=== PATIENT | male | born 1965 | race Caucasian/White ===

== ENCOUNTER 2016-05-27 06:40 | Day surgery (SDC) | payer BC ==
[~2016-05-27] VITALS: Ht 205.7 cm; Wt 131.5 kg
[~2016-05-27 06:40] MED LIST: ASPI81 PO; TAB-TAB PO
[2016-05-27] MEDS ORDERED: SODIUM BICARBONATE 100 MEQ in D5W 1000 ML IV SCH ×2 (07:45→08:30)
[2016-05-27 08:18] VITALS: BP 126/83; PULSE 60; RESP 18; TEMP 98.3; O2SAT 99
[2016-05-27 08:29] LABS: AUTOMATED NEUTROPHIL # 3.9 TH/MM3 (1.8-7.7); BASOPHIL % 0.4 % (0.0-2.0); EOSINOPHIL # 0.2 TH/MM3 (0-0.4); EOSINOPHIL % 2.8 % (0.0-4.0); HEMATOCRIT 38.1 % (39.0-51.0); HEMO FLAGS DIFF FINAL; LYMPH % 29.8 % (9.0-44.0); MEAN CELL VOLUME 85.7 FL (80.0-100.0); MEAN CORPUSCULAR HEMOGLOBIN 28.8 PG (27.0-34.0); MEAN CORPUSCULAR HGB CONC 33.6 % (32.0-36.0); MONO % 8.5 % (0.0-8.0); NEUT % 58.5 % (16.0-70.0); PLATELET COUNT 222 TH/MM3 (150-450); RED BLOOD COUNT 4.45 MIL/MM3 (4.50-5.90); RED CELL DISTRIBUTION WIDTH 13.4 % (11.6-17.2); WHITE BLOOD COUNT 6.7 TH/MM3 (4.0-11.0)
[2016-05-27] MEDS ORDERED: SODIUM BICARBONATE 8.4% INJ 50 ML ONE (08:44)
[2016-05-27] MEDS ORDERED: LIDOCAINE HCL 1% PF 30 ML VIAL ONE ×2 (08:44→09:11)
[2016-05-27] MEDS ORDERED: MIDAZOLAM HCL 2 MG/2 ML VIAL ONE ×3 (08:45→09:29)
[2016-05-27 08:49] LABS: BICARBONATE 29.7 MEQ/L (21.0-32.0); POTASSIUM 4.4 MEQ/L (3.5-5.1); PROTHROMBIN TIME - PATIENT 10.7 SEC (9.8-11.6)
[2016-05-27] MEDS ORDERED: LIDOCAINE 1%/EPINEPHrine 1:100,000 SOLN 20 ML VIAL ONE (08:57)
[2016-05-27] MEDS ORDERED: SODIUM CHLOR 0.9% 250 ML IV PRN (10:30)
[2016-05-27] MEDS ORDERED: ATROPINE SULFATE 1 MG/ML VIAL IV PUSH PRN (10:30)
[2016-05-27] MEDS ORDERED: ENALAPRILAT 1.25 MG/ML VIAL IV PRN (10:30)
[2016-05-27] MEDS ORDERED: cloNIDine HCL 0.1 MG TAB PO PRN (10:30)
[2016-05-27] MEDS ORDERED: LORazepam 2 MG/ML VIAL IVP PRN (10:30)
[2016-05-27] MEDS ORDERED: LABETALOL HCL 100 MG/20 ML VIAL IVP PRN (10:30)
[2016-05-27] MEDS ORDERED: METOCLOPRAMIDE HCL 10 MG/2 ML VIAL IVS PRN (10:30)
[2016-05-27] MEDS ORDERED: POTASSIUM CHLORIDE 20 MEQ CONTROLLED RELEASE TAB PO PRN (10:30)
[2016-05-27] MEDS ORDERED: ONDANSETRON HCL 4 MG/2 ML VIAL IV PRN (10:30)
[2016-05-27] MEDS ORDERED: HOLD GLUCOPHAGE, GLUCOPHAGE XR, AND AVANDAMET XX PRN (10:30)
[2016-05-27] MEDS ORDERED: SODIUM NITROPRUSSIDE 50 MG/250 ML D5W IV SCH ×2 (10:30)
[2016-05-27] MEDS ORDERED: LIDOCAINE HCL 1% 50 ML VIAL INFIL PRN (10:30)
--- NOTE | 2016-05-27 10:36 | PD.VS.PN ---
Pre-operative Note Pre-operative diagnosis: symptomatic varicose veins. Planned procedure: left GSV ablation Labs: Laboratory Tests Test 05/27/16 07:55 White Blood Count 6.7 Red Blood Count 4.45 Hemoglobin 12.8 Hematocrit 38.1 Mean Corpuscular Volume 85.7 Mean Corpuscular Hemoglobin 28.8 Mean Corpuscular Hemoglobin 33.6 Concent Red Cell Distribution Width 13.4 Platelet Count 222 Mean Platelet Volume 8.7 Neutrophils (%) (Auto) 58.5 Lymphocytes (%) (Auto) 29.8 Monocytes (%) (Auto) 8.5 Eosinophils (%) (Auto) 2.8 Basophils (%) (Auto) 0.4 Neutrophils # (Auto) 3.9 Lymphocytes # (Auto) 2.0 Monocytes # (Auto) 0.6 Eosinophils # (Auto) 0.2 Basophils # (Auto) 0.0 CBC Comment DIFF FINAL Differential Comment Prothrombin Time 10.7 Prothromb Time International 1.0 Ratio Sodium Level 142 Potassium Level 4.4 Chloride Level 108 Carbon Dioxide Level 29.7 Anion Gap 4 Blood Urea Nitrogen 18 Creatinine 1.03 Estimat Glomerular Filtration 77 Rate Random Glucose 92 Calcium Level 8.5 Operative site marked: Yes Consent: Informed consent has been obtained from Wojciech Ivy. I have explained the procedure in detail and discussed the risks, benefits, and potential complications. All questions have been answered. Jacobo Jay DO May 27, 2016 10:25
[2016-05-28] MEDS ORDERED: ASPIRIN EC 81 MG TABEC PO SCH (09:00)
--- NOTE | 2016-05-28 12:02 | MP ---
cc: JACOBO DE GUZMAN ATTENDING PHYSICIAN Dr. Jacobo De Guzman DATE OF OPERATION 05/27/2016 PREOPERATIVE DIAGNOSIS Symptomatic varicose veins, venous insufficiency left lower extremity. POSTOPERATIVE DIAGNOSIS Symptomatic varicose veins, venous insufficiency left lower extremity. PROCEDURES Left greater saphenous vein ablation. SURGEON DO Pierre. PROCEDURE The patient's left leg was prepped and draped in sterile fashion after being under moderate sedation. Preoperatively I had marked the left greater saphenous vein from the groin to around the level of the knee and below the level of the knee the vein was small and too tortuous for any type of ablation. I injected 1% lidocaine with epinephrine and before getting access under ultrasound of the left greater saphenous vein at the level of the knee. I placed an 18-gauge needle and exchanged over braided wire for a 7-Icelandic sheath and then advanced my [employer] radiofrequency ablation catheter under ultrasound through the saphenofemoral junction through my sheath in the left groin. I then used tumescent anesthesia in order to, under ultrasound guidance, to inject a bull's-eye pattern along the length of the greater saphenous vein from the knee up to the about 2 cm from the saphenofemoral junction. Before doing this, I made sure that my catheter was pulled back about 2.5 cm from the saphenofemoral junction. Once I felt like we had appropriately tumescence, I then performed an ablation along the length of the saphenous vein from approximately 2.5 cm back to the knee. Afterwards ultrasound showed that the vein was thrombosed and it was about 2.2 cm from the saphenofemoral junction to where the thrombosed vein segment was to the level of the knee. After I removed my sheath and catheter, I wrapped the leg from the ankle to the groin with three Fortunato bandages and I used 4x4s from the knee to the thigh. The patient tolerated the procedure well and was taken to the PACU at the end of the case. Jacobo De Guzman DO RM/SSB /10:29 AM /11:54 AM
== END 2016-05-27 11:46 | disposition home or self-care (01) ==
LOC: HDOC 06:40 → HDIC 06:41 → HDOC 11:46
PROVIDERS: ATTEND Surgery
DX: I83.892 Varicose veins of left lower extremity with other complications (principal); I87.2 Venous insufficiency (chronic) (peripheral)
CPT/HCPCS: 36475; 80048; 85025; 85610; C1769; J2250; J3010